=== PATIENT | female | born 1970 | race Two or more races ===

== ENCOUNTER 2018-08-16 20:44 | Emergency (ER) | payer OTHER ==
[~2018-08-16] VITALS: Ht 167.6 cm; Wt 97.5 kg
[2018-08-16 20:50] VITALS: Ht 167.6 cm; Wt 97.5 kg
[2018-08-16 21:35] LABS: BASOPHIL % 0.6 % (0-2); PLATELET COUNT 308 x10^3mcL (130-400)
[2018-08-16 21:37] LABS: RED CELL DISTRIBUTION WIDTH 17.2 % (11.5-14.5)
[2018-08-16 21:51] LABS: ALBUMIN 3.8 g/dL (3.4-5.0); ALKALINE PHOSPHATASE 59 U/L (46-116); ALT/SGPT 33 U/L (14-59); AST/SGOT 15 U/L (15-37); BILIRUBIN TOTAL 0.25 mg/dL (0.20-1.00); CARBON DIOXIDE 28.7 mmol/L (21-32); CHLORIDE SERUM 103 mmol/L (98-107); GFR1 > 60 mL/min; GLUCOSE SERUM 172 mg/dL (74-106); SODIUM SERUM 146 mmol/L (136-145); TOTAL PROTEIN, SERUM 7.8 g/dL (6.4-8.2)
[2018-08-16 21:53] LABS: POTASSIUM SERUM 2.9 mmol/L (3.5-5.1)
[2018-08-16 23:29] VITALS: BP 123/74
== END 2018-08-16 23:29 | disposition home or self-care (01) ==
LOC: ED 20:44
PROVIDERS: Emergency Medicine
DX: R07.89 Other chest pain (principal); R20.2 Paresthesia of skin; I10 Essential (primary) hypertension; E11.9 Type 2 diabetes mellitus without complications; E78.00 Pure hypercholesterolemia, unspecified; Z88.8 Allergy status to other drugs, medicaments and biological substances; Z85.850 Personal history of malignant neoplasm of thyroid
CPT/HCPCS: 36415; 83880; Q0092